=== PATIENT | male | born 1995 ===

== ENCOUNTER 2020-08-13 14:02 | Outpatient (REF) | payer OTHER, SELFPAY ==
[2020-08-13 22:00] LABS: Abs Immature Grans 0.01 10^3/uL (0.0-0.06); Absolute Basophil Count 0.03 10^3/uL (0.0-0.2); Absolute Eosinophil Count 0.08 10^3/uL (0.0-0.7); Absolute Lymphocyte Count 1.26 10^3/uL (1.2-3.4); Absolute Monocyte Count 0.42 10^3/uL (0.1-0.8); Absolute Neutrophil Count 4.05 10^3/uL (1.2-6.7); Basophils % 0.5; Eosinophils % 1.4; HCT 47.8 % (40.0-50.0); HGB 16.4 g/dL (13.5-17.5); Immature Grans % 0.2; Lymphocytes % 21.5; MCH 31.5 pg (27.0-33.0); MCHC 34.3 % (32.0-36.0); MCV 91.7 fL (80-95); Monocytes % 7.2; Neutrophils % 69.2; Nucleated RBC 0 %; Platelet Count 295 10^3/uL (130-400); RBC 5.21 10^6/uL (4.36-5.78); RDW 11.5 % (11.8-14.1); WBC 5.85 10^3/uL (4.4-10.8)
[2020-08-13 22:26] LABS: TSH (W/Ref FT4) 0.85 uIU/mL (0.36-3.74)
== END 2020-08-13 14:22 ==
LOC: NCHCN 14:02
PROVIDERS: Visit Provider Nurse Practitioner Community Health
DX: L65.9 Nonscarring hair loss, unspecified (principal); N62 Hypertrophy of breast
CPT/HCPCS: 84443; 85025

== ENCOUNTER 2020-08-20 09:20 | Outpatient (REF) | payer OTHER, SELFPAY ==
[2020-08-23 20:15] LABS: Testosterone, Free 13.5 ng/dL (5.05-19.8); Testosterone, Total 612 ng/dL (240-950)
== END 2020-08-20 09:40 ==
LOC: NCHCN 09:20
PROVIDERS: Visit Provider Nurse Practitioner Community Health
DX: N62 Hypertrophy of breast (principal)
CPT/HCPCS: 84402; 84403

== ENCOUNTER 2021-03-19 10:50 | Outpatient (REF) | payer OTHER, SELFPAY ==
[2021-03-20 11:02] LABS: Lyme Ab w Rflx to Lyme Confirm Negative (Negative)
[2021-03-21 17:40] LABS: Anaplasma phagocytophilum Negative (Negative); B. miyamotoi PCR Negative (Negative); Babesia divergens/MO-1 Negative (Negative); Babesia duncani Negative (Negative); Babesia microti Negative (Negative); Ehrlichia chaffeensis Negative (Negative); Ehrlichia ewingii/canis Negative (Negative); Ehrlichia muris eauclairensis Negative (Negative)
== END 2021-03-19 10:51 | disposition home or self-care (01) ==
LOC: NCHCN 10:50
PROVIDERS: Visit Provider Nurse Practitioner Community Health
DX: W57.XXXA Bitten or stung by nonvenomous insect and other nonvenomous arthropods, initial encounter (principal); T14.8XXA Other injury of unspecified body region, initial encounter
CPT/HCPCS: 87798; 86618